=== PATIENT | male | born 1985 | race Caucasian/White ===

== ENCOUNTER 2023-07-21 07:18 | Inpatient (IN) | payer OTHER, SELFPAY ==
[2023-07-21] MEDS ORDERED: Ketamine In 0.9 % NaCl 50 MG/5 ML SYRINGE ONE (07:31)
[2023-07-21] MEDS ORDERED: fentaNYL 50 mcg/mL 1 mL Vial ONE (07:31)
[2023-07-21] MEDS ORDERED: Midazolam HCl 2 mg/2 ml Vial ONE (07:31)
[2023-07-21] MEDS ORDERED: Fentanyl CADD 100 ML IV SCH ×2 (08:00→10:15)
[2023-07-21 08:15] LABS: Bacteria/HPF None Seen HPF (None Seen); Bilirubin Negative (Negative); Blood, Urine 3+ (Negative); CAUTI Indications for Culture Alt mental st,lethar; Clarity Clear (Clear); Glucose, Urine (Dipstick) Normal (Negative); Ketone, Urine 10 mg/dL (Negative); Leukocyte Negative Leu/uL (Negative); Nitrite Negative (Negative); Protein, Urine (Dipstick) 50 mg/dL (Neg-Trace); Squamous Epithelial 0-3 HPF (0-3); Urobilinogen Normal mg/dL (Less than 2); WBC/HPF 0-3 HPF (0-3); pH, Urine 5.5 (5.0-9.0)
[2023-07-21 08:16] LABS: Specific Gravity, Urine 1.049 (1.002-1.036)
[2023-07-21 08:18] LABS: Urine Culture Reflex No No
[2023-07-21 08:35] LABS: Actual Bicarbonate (HCO3a) 19.9 mEq/L (22-28); Base Excess (BEa) -6.6 mEq/L (-2.0 to +3.0); Calcium, Ionized (arterial) 1.08 mmol/L (1.12-1.30); Carboxyhemoglobin (COHb) 0.3 gm% (0.0-3.0); Hematocrit-ABG 42 % (42.0-52.0); Hemoglobin (Hb) 14.2 g/dL (14.0-18.0); O2 Tension (PaO2), arterial 181.9 mmHg (80.0-100.0); Potassium - ABG Lab 3.67 mmol/L (3.70-5.30); pH, Arterial 7.283 (7.35-7.45)
[2023-07-21 08:36] LABS: Analyzer IN Cardio ER; Puncture Site RRA
[2023-07-21] MEDS ORDERED: CEFAZOLIN 2 GM in Sodium Chloride 0.9% 100 ML IVPB SCH ×3 (08:45→17:00)
[2023-07-21] MEDS ORDERED: Boostrix 0.5 ML (Tdap) VIAL (>/=7 yrs of age) ONE (08:48)
[2023-07-21] MEDS ORDERED: LORazepam 2 MG/ML SYR.(CARPUJECT) ONE (09:17)
[2023-07-21] MEDS ORDERED: Propofol 1,000 MG/100 ML VIAL IV PRN (10:15)
[2023-07-21] MEDS ORDERED: DISCONTINUE PREVIOUS NARCOTIC PAIN MEDICATIONS AND BENZODIAZEPINES FS SCH (10:15)
[2023-07-21] MEDS ORDERED: Lactated Ringer's 1,000 ML IV SCH (10:15)
[2023-07-21] MEDS ORDERED: Propofol BOLUS 1,000 MG/100 ML VIAL IV PRN (10:15)
[2023-07-21] MEDS ORDERED: Morphine 2 MG/ML VIAL SLOW IVP PRN (10:15)
[2023-07-21] MEDS ORDERED: Lorazepam 2 MG/ML VIAL SLOW IVP PRN (10:15)
[2023-07-21] MEDS ORDERED: Fentanyl BOLUS 250 ML IVPB PRN (10:15)
[2023-07-21] MEDS ORDERED: Ipratropium/Albuterol 3 ML NEB NEB PRN (10:15)
[2023-07-21] MEDS ORDERED: TETANUS, DIPHTHERIA TOX,ADULT (TDVAX) 0.5 ML VIAL IM ONE (10:15)
[2023-07-21] MEDS ORDERED: Ventilator Sedation Protocol 1 EACH FS SCH (10:15)
[2023-07-21 10:36] LABS: #Monocytes 0.9 thou/uL (0.11-0.59); #Neutrophils 9.3 thou/uL (1.40-6.50); %Basophils 0.2 % (0.0-1.0); %Eosinophils 0.1 % (0.0-10.0); %Lymphocytes 15.5 % (21.0-51.0); %Monocytes 7.5 % (0.0-10.0); %Neutrophils 76.4 % (42.0-75.0); Hematocrit 40.8 % (42.0-52.0); Hemoglobin 13.8 g/dL (14.0-18.0); Mean Corpuscular HGB CONC 33.8 g/dL (32.0-36.0); Mean Corpuscular Hemoglobin 30.8 pg (27.0-31.0); Mean Corpuscular Volume 91.1 fl (78.0-98.0); Mean Platelet Volume 11.1 fL (7.4-10.4); Platelet Count 168 10x3/uL (130-400); RBC Distribution Width 13.7 % (11.5-14.5); Red Blood Cell (RBC) Count 4.48 mill/uL (4.70-6.10); White Blood Cell (WBC) Count 12.2 10x3/uL (4.8-10.8)
[2023-07-21 10:57] LABS: Lactic Acid 3.5 mmol/L (0.5-2.2)
[2023-07-21 11:04] LABS: ALT (SGPT) 356 U/L (8-55); AST (SGOT) 577 U/L (5-34); Albumin 3.9 g/dL (3.5-5.0); Alkaline Phosphatase 83 U/L (40-110); Anion Gap 19 mmol/L (10-20); BUN (Urea Nitrogen) 17 mg/dL (8.9-20.6); Bilirubin, Total 1.1 mg/dL (0.2-1.2); Calc. Creatinine Clearance 0 mL/min (70-130); Calcium 8.5 mg/dL (7.8-10.44); Carbon Dioxide 18 mmol/L (22-29); Chloride 111 mmol/L (98-107); Estimated GFR 84; Globulin 3.1 g/dL (2.4-3.5); Glucose 81 mg/dL (70-105); Potassium 3.7 mmol/L (3.5-5.1); Sodium 144 mmol/L (136-145)
[2023-07-21] MEDS ORDERED: PHENYLEPHRINE-NS 100 MCG/ML 10 ML SYRINGE ONE ×2 (11:38→11:58)
[2023-07-21] MEDS ORDERED: Rocuronium Bromide 10 MG/ML (10ML VIAL) ONE ×2 (11:38→11:42)
[2023-07-21 11:48] VITALS: BMI 24.4
[2023-07-21] MEDS ORDERED: Albumin 5% 500 ML ONE (11:50)
[2023-07-21] MEDS ORDERED: CEFAZOLIN 1 GM VIAL ONE (12:08)
[2023-07-21] MEDS ORDERED: MINERAL OIL/WHITE PETROLATUM 3.5 GM TUBE ONE (12:15)
[2023-07-21] MEDS ORDERED: Bacitracin Zinc Ointment 30 gm TUBE ONE (12:40)
[2023-07-21] MEDS: Lactated Ringer's 1,000 ML IV SCH ×2 (14:43→18:09)
[2023-07-21] MEDS: fentaNYL 50 mcg/hour Patch TD SCH (17:58)
[2023-07-21 18:22] LABS: Troponin I 0.073 ng/mL (< 0.028)
[2023-07-21] MEDS: Morphine 4 MG/ML VIAL SLOW IVP PRN (19:43)
[2023-07-21] MEDS: CEFAZOLIN 2 GM in Sodium Chloride 0.9% 100 ML IVPB SCH (19:44)
[2023-07-22] MEDS: Lactated Ringer's 1,000 ML IV SCH ×3 (01:36→14:35)
[2023-07-22 03:50] LABS: Hematocrit 35.1 % (42.0-52.0); Hemoglobin 11.5 g/dL (14.0-18.0); Manual Diff?? YES; Mean Corpuscular HGB CONC 32.8 g/dL (32.0-36.0); Mean Corpuscular Hemoglobin 30.7 pg (27.0-31.0); Mean Platelet Volume 10.7 fL (7.4-10.4); Platelet Count 155 10x3/uL (130-400); RBC Distribution Width 14.5 % (11.5-14.5); Red Blood Cell (RBC) Count 3.74 mill/uL (4.70-6.10); White Blood Cell (WBC) Count 9.6 10x3/uL (4.8-10.8)
[2023-07-22 03:55] LABS: Delete Auto Diff?? YES; Mean Corpuscular Volume 93.9 fl (78.0-98.0)
[2023-07-22] MEDS: CEFAZOLIN 2 GM in Sodium Chloride 0.9% 100 ML IVPB SCH (03:55)
[2023-07-22 04:12] LABS: Lactic Acid 2.3 mmol/L (0.5-2.2)
[2023-07-22 04:18] LABS: ALT (SGPT) 196 U/L (8-55); AST (SGOT) 195 U/L (5-34); Albumin 3.4 g/dL (3.5-5.0); Alkaline Phosphatase 62 U/L (40-110); Anion Gap 13 mmol/L (10-20); BUN (Urea Nitrogen) 14 mg/dL (8.9-20.6); Bilirubin, Total 1.4 mg/dL (0.2-1.2); Calc. Creatinine Clearance 121 mL/min (70-130); Calcium 8.3 mg/dL (7.8-10.44); Carbon Dioxide 20 mmol/L (22-29); Chloride 112 mmol/L (98-107); Estimated GFR 113; Globulin 2.6 g/dL (2.4-3.5); Glucose 123 mg/dL (70-105); Potassium 4.2 mmol/L (3.5-5.1); Sodium 141 mmol/L (136-145)
[2023-07-22] MEDS: Morphine 4 MG/ML VIAL SLOW IVP PRN ×9 (05:42→22:42)
[2023-07-22 06:04] LABS: Band 7 % (5-11); Burr Cells SLIGHT = 2-5 cells HPF (0-1); CellaVision Operator ID lab.sh2; Lymphocytes 14 % (21-51); Macrocytosis SLIGHT = 6-15 cells HPF (0-5); Monocytes 3 % (0-10); Neutrophil 76 % (42-75); Ovalocytes SLIGHT = 2-5 cells HPF (0-1); Platelet Adequacy Comment Platelets Normal; Polychromasia SLIGHT = 2-3 cells HPF (0-2); Total Cell Count 100
[2023-07-22] MEDS: Pantoprazole 40 MG VIAL IVP SCH (07:55)
[2023-07-22 13:11] LABS: Hematocrit 34.6 % (42.0-52.0); Hemoglobin 11.6 g/dL (14.0-18.0)
[2023-07-22] MEDS: Bacitracin 1 PK TOP SCH ×2 (14:34→20:43)
[2023-07-23] MEDS: Morphine 4 MG/ML VIAL SLOW IVP PRN ×8 (02:32→23:54)
[2023-07-23 07:49] LABS: #Monocytes 0.7 thou/uL (0.11-0.59); #Neutrophils 8.3 thou/uL (1.40-6.50); %Basophils 0.4 % (0.0-1.0); %Eosinophils 0.3 % (0.0-10.0); %Lymphocytes 9.5 % (21.0-51.0); %Monocytes 6.5 % (0.0-10.0); Hematocrit 29.7 % (42.0-52.0); Hemoglobin 10.1 g/dL (14.0-18.0); Mean Corpuscular Hemoglobin 31.2 pg (27.0-31.0); Mean Corpuscular Volume 91.7 fl (78.0-98.0); Mean Platelet Volume 13.1 fL (7.4-10.4); RBC Distribution Width 13.4 % (11.5-14.5); Red Blood Cell (RBC) Count 3.24 mill/uL (4.70-6.10)
[2023-07-23 07:52] LABS: Platelet Count 114 10x3/uL (130-400)
[2023-07-23 08:11] LABS: ALT (SGPT) 120 U/L (8-55); AST (SGOT) 108 U/L (5-34); Albumin 3.4 g/dL (3.5-5.0); Alkaline Phosphatase 71 U/L (40-110); Anion Gap 11 mmol/L (10-20); BUN (Urea Nitrogen) 12 mg/dL (8.9-20.6); Bilirubin, Total 1.2 mg/dL (0.2-1.2); Calc. Creatinine Clearance 140 mL/min (70-130); Calcium 8.4 mg/dL (7.8-10.44); Carbon Dioxide 24 mmol/L (22-29); Chloride 101 mmol/L (98-107); Estimated GFR 117; Globulin 2.7 g/dL (2.4-3.5); Glucose 113 mg/dL (70-105); Potassium 3.8 mmol/L (3.5-5.1); Protein, Total 6.1 g/dL (6.0-8.3); Sodium 132 mmol/L (136-145)
[2023-07-23] MEDS: Bacitracin 1 PK TOP SCH ×3 (09:00→20:04)
[2023-07-23] MEDS: Pantoprazole 40 MG VIAL IVP SCH (09:00)
[2023-07-24] MEDS: traMADol HCl 50 MG TAB PO PRN ×4 (00:42→20:36)
[2023-07-24] MEDS: Morphine 4 MG/ML VIAL SLOW IVP PRN ×5 (03:01→20:37)
[2023-07-24 06:03] LABS: #Monocytes 0.4 thou/uL (0.11-0.59); #Neutrophils 6.3 thou/uL (1.40-6.50); %Basophils 0.1 % (0.0-1.0); %Eosinophils 0.5 % (0.0-10.0); %Lymphocytes 10.2 % (21.0-51.0); %Monocytes 5.8 % (0.0-10.0); Hematocrit 28.7 % (42.0-52.0); Mean Corpuscular HGB CONC 34.8 g/dL (32.0-36.0); Mean Corpuscular Hemoglobin 31.1 pg (27.0-31.0); Mean Corpuscular Volume 89.1 fl (78.0-98.0); Mean Platelet Volume 12.9 fL (7.4-10.4); Platelet Count 124 10x3/uL (130-400); Red Blood Cell (RBC) Count 3.22 mill/uL (4.70-6.10); White Blood Cell (WBC) Count 7.5 10x3/uL (4.8-10.8)
[2023-07-24 06:51] LABS: ALT (SGPT) 99 U/L (8-55); AST (SGOT) 94 U/L (5-34); Albumin 3.4 g/dL (3.5-5.0); Alkaline Phosphatase 99 U/L (40-110); Anion Gap 8 mmol/L (10-20); BUN (Urea Nitrogen) 11 mg/dL (8.9-20.6); Bilirubin, Total 1.1 mg/dL (0.2-1.2); Calc. Creatinine Clearance 144 mL/min (70-130); Calcium 8.6 mg/dL (7.8-10.44); Carbon Dioxide 28 mmol/L (22-29); Chloride 101 mmol/L (98-107); Estimated GFR 118; Globulin 2.9 g/dL (2.4-3.5); Glucose 122 mg/dL (70-105); Potassium 3.5 mmol/L (3.5-5.1); Protein, Total 6.3 g/dL (6.0-8.3); Sodium 133 mmol/L (136-145)
[2023-07-24] MEDS: Bacitracin 1 PK TOP SCH ×3 (08:30→20:37)
[2023-07-24] MEDS: Pantoprazole 40 MG VIAL IVP SCH (08:30)
[2023-07-24] MEDS ORDERED: Acetaminophen 325 MG TAB PO PRN (10:02)
[2023-07-24] MEDS: HYDROcodone/Acetaminophen 10/325 mg Tablet PO PRN ×2 (11:06→18:39)
[2023-07-24] MEDS: fentaNYL 50 mcg/hour Patch TD SCH (16:00)
[2023-07-25] MEDS: HYDROcodone/Acetaminophen 10/325 mg Tablet PO PRN ×5 (00:41→20:15)
[2023-07-25] MEDS: traMADol HCl 50 MG TAB PO PRN ×2 (03:05→12:12)
[2023-07-25 08:04] LABS: #Eosinphils 0.1 thou/uL (0.0-0.7); #Monocytes 0.6 thou/uL (0.11-0.59); #Neutrophils 4.9 thou/uL (1.40-6.50); %Basophils 0.6 % (0.0-1.0); %Eosinophils 1.2 % (0.0-10.0); %Lymphocytes 18.5 % (21.0-51.0); %Monocytes 8.8 % (0.0-10.0); %Neutrophils 70.5 % (42.0-75.0); Hematocrit 28.8 % (42.0-52.0); Hemoglobin 9.7 g/dL (14.0-18.0); Mean Corpuscular HGB CONC 33.7 g/dL (32.0-36.0); Mean Corpuscular Hemoglobin 30.9 pg (27.0-31.0); Mean Corpuscular Volume 91.7 fl (78.0-98.0); Mean Platelet Volume 11.3 fL (7.4-10.4); Platelet Count 136 10x3/uL (130-400); RBC Distribution Width 13.3 % (11.5-14.5); Red Blood Cell (RBC) Count 3.14 mill/uL (4.70-6.10); White Blood Cell (WBC) Count 6.9 10x3/uL (4.8-10.8)
[2023-07-25] MEDS: Morphine 4 MG/ML VIAL SLOW IVP PRN ×2 (08:04→17:34)
[2023-07-25] MEDS: Bacitracin 1 PK TOP SCH ×3 (08:04→20:15)
[2023-07-25] MEDS: Pantoprazole 40 MG VIAL IVP SCH (08:04)
[2023-07-25 08:32] LABS: ALT (SGPT) 95 U/L (8-55); AST (SGOT) 100 U/L (5-34); Albumin 3.6 g/dL (3.5-5.0); Alkaline Phosphatase 75 U/L (40-110); Anion Gap 12 mmol/L (10-20); BUN (Urea Nitrogen) 10 mg/dL (8.9-20.6); Bilirubin, Total 1.4 mg/dL (0.2-1.2); Calc. Creatinine Clearance 149 mL/min (70-130); Calcium 8.7 mg/dL (7.8-10.44); Carbon Dioxide 28 mmol/L (22-29); Chloride 98 mmol/L (98-107); Estimated GFR 119; Globulin 3.2 g/dL (2.4-3.5); Glucose 100 mg/dL (70-105); Potassium 3.5 mmol/L (3.5-5.1); Protein, Total 6.8 g/dL (6.0-8.3); Sodium 134 mmol/L (136-145)
[2023-07-25] MEDS ORDERED: Melatonin 3 MG TAB PO PRN (20:21)
[2023-07-26] MEDS: traMADol HCl 50 MG TAB PO PRN ×2 (00:12→06:03)
[2023-07-26] MEDS: HYDROcodone/Acetaminophen 10/325 mg Tablet PO PRN ×2 (03:39→08:01)
[2023-07-26] MEDS: Bacitracin 1 PK TOP SCH (08:01)
[2023-07-26] MEDS: Pantoprazole 40 MG VIAL IVP SCH (08:02)
[2023-07-26 08:07] VITALS: TEMP 97.8
[2023-07-26] MEDS ORDERED: traMADol HCl 50 MG TAB PO PRN (09:01)
[2023-07-26 11:57] VITALS: BP 138/82
[2023-07-26] MEDS ORDERED: Acetaminophen 500 MG TAB PO SCH (12:00)
[2023-07-26] MEDS ORDERED: Ibuprofen 600 MG TAB PO SCH (15:00)
== END 2023-07-26 13:59 | disposition home or self-care (01) | DRG 956 ==
LOC: ERS 07:18 → CCU 11:12 → SJJU 07-22 19:10
PROVIDERS: ADMIT Specialist; ATTEND Specialist
PROC: 0QS806Z Reposition Right Femoral Shaft with Intramedullary Internal Fixation Device, Open Approach (ICD-10-PCS; principal; 2023-07-21)
PROC: 0HQ1XZZ Repair Face Skin, External Approach (ICD-10-PCS; 2023-07-21)
PROC: 0HQ0XZZ Repair Scalp Skin, External Approach (ICD-10-PCS; 2023-07-21)
PROC: 0BH17EZ Insertion of Endotracheal Airway into Trachea, Via Natural or Artificial Opening (ICD-10-PCS; 2023-07-21)
PROC: 0DH67UZ Insertion of Feeding Device into Stomach, Via Natural or Artificial Opening (ICD-10-PCS; 2023-07-21)
PROC: 4A033R1 Measurement of Arterial Saturation, Peripheral, Percutaneous Approach (ICD-10-PCS; 2023-07-21)
PROC: 5A1935Z Respiratory Ventilation, Less than 24 Consecutive Hours (ICD-10-PCS; 2023-07-21)
DX: S72.301A Unspecified fracture of shaft of right femur, initial encounter for closed fracture (principal); S36.113A Laceration of liver, unspecified degree, initial encounter; J96.00 Acute respiratory failure, unspecified whether with hypoxia or hypercapnia; J18.9 Pneumonia, unspecified organism; S22.43XA Multiple fractures of ribs, bilateral, initial encounter for closed fracture; V89.2XXA Person injured in unspecified motor-vehicle accident, traffic, initial encounter; R40.2411 Glasgow coma scale score 13-15, in the field [EMT or ambulance]; S30.811A Abrasion of abdominal wall, initial encounter; S01.01XA Laceration without foreign body of scalp, initial encounter; S01.111A Laceration without foreign body of right eyelid and periocular area, initial encounter; S01.511A Laceration without foreign body of lip, initial encounter; R74.01 Elevation of levels of liver transaminase levels
CPT/HCPCS: 36415; 36600; 51702; 71045; 80053; 81001; 82805; 83605; 84484; 85025; 86850; 86900; 86901; 90471; 90715; 93005; 94002; 96365; 96366; 96376; C1713; C9113; G0390; J0690; J1650; J2060; J2250; J2270; J3010; J3490; J7120; P9045